=== PATIENT | male | born 1960 | race Caucasian/White ===

== ENCOUNTER 2017-07-29 11:05 | Inpatient (IN) | payer SELFPAY ==
[2017-07-29] MEDS ORDERED: Iopamidol 370 76% 50 ML VIAL FS ONE (11:17)
[2017-07-29] MEDS ORDERED: ISOVUE-370 76%-LOCM 1 ML ONE (11:17)
[2017-07-29] MEDS ORDERED: Ondansetron HCl/PF 4 MG/2 ML Vial ONE ×2 (11:46→12:56)
[2017-07-29 12:01] LABS: #Basophils 0.1 thou/uL (0.0-0.2); #Eosinphils 0.1 thou/uL (0.0-0.7); #Monocytes 0.6 thou/uL (0.11-0.59); #Neutrophils 6.7 thou/uL (1.40-6.50); %Basophils 0.8 % (0.0-1.0); %Eosinophils 1.7 % (0.0-10.0); %Lymphocytes 11.4 % (21.0-51.0); %Monocytes 7.2 % (0.0-10.0); %Neutrophils 78.8 % (42.0-75.0); Hemoglobin 16.1 g/dL (14.0-18.0); Mean Corpuscular HGB CONC 33.6 g/dL (32.0-36.0); Mean Corpuscular Hemoglobin 30.3 pg (27.0-31.0); Mean Corpuscular Volume 89.9 fl (80.0-94.0); Mean Platelet Volume 6.7 fL (7.4-10.4); Platelet Count 311 thou/uL (130-400); RBC Distribution Width 11.9 % (11.5-14.5); Red Blood Cell (RBC) Count 5.31 mill/uL (4.70-6.10); White Blood Cell (WBC) Count 8.5 thou/uL (4.8-10.8)
[2017-07-29 12:22] LABS: Troponin I Less than 0.010 ng/mL (< 0.028)
[2017-07-29 12:23] LABS: ALT (SGPT) 36 U/L (8-55); AST (SGOT) 49 U/L (5-34); Albumin 4.9 g/dL (3.5-5.0); Alkaline Phosphatase 106 U/L (40-150); Anion Gap 16 mmol/L (10-20); BUN (Urea Nitrogen) 18 mg/dL (8.4-25.7); Bilirubin, Total 1.9 mg/dL (0.2-1.2); Calc. Creatinine Clearance 0 mL/min (70-130); Calcium 10.6 mg/dL (7.8-10.44); Carbon Dioxide 28 mmol/L (22-29); Chloride 99 mmol/L (98-107); Estimated GFR-MDRD 69; Globulin 3.1 g/dL (2.4-3.5); Glucose 104 mg/dL (70-105); Lipase 17 U/L (8-78); Potassium 4.2 mmol/L (3.5-5.1); Sodium 139 mmol/L (136-145)
[2017-07-29 12:25] LABS: CKMB 13.5 ng/mL (0-6.6)
[2017-07-29 14:51] LABS: Bilirubin Moderate (Negative); Blood, Urine Trace (Negative); Clarity TURBID (Clear); Glucose, Urine (Dipstick) Negative (Negative); Leukocyte Large (Negative); Nitrite Negative (Negative); Protein, Urine (Dipstick) 30 mg/dL (Neg-Trace); Specific Gravity, Urine 1.029 (1.002-1.036)
[2017-07-29 14:53] LABS: Bacteria/HPF 1+ HPF (None Seen); Hyaline Casts/LPF 4-6 HYALINE CAST LPF (0-3 Hyaline); Pathc Cast-AUWi Flag 0.74 (0-2.49); Squamous Epithelial None Seen HPF (0-3); Yeast-AUWi Flag 18.9 (0-25.0)
[2017-07-29] MEDS ORDERED: Pantoprazole 40 MG VIAL ONE ×2 (15:22→15:23)
[2017-07-29] MEDS ORDERED: cefTRIAXone\\ROCEPHIN 2 GM in Sodium Chloride 0.9% 100 ML IVPB ONE (15:30)
--- NOTE | 2017-07-29 16:17 | CT ---
CT ABDOMEN WITH CONTRAST CT PELVIS WITH CONTRAST: DATE: 07-29-2017 TIME: 1:53 p.m. HISTORY: 57-year-old male with generalized abdominal pain, nausea, emesis, and diarrhea. COMPARISON: None. TECHNIQUE: IV injection of iodinated contrast media: 100 ml Isovue 370 Oral contrast media: PO Isovue. FINDINGS: There is only a small amount of oral contrast material, all within the nondistended gastric lumen. Th e patient was reportedly not able to drink most of the oral contrast material. There is diffuse mural edema and mural thickening of the distal esophagus. The hepatic attenuation is diffusely low, consistent with fatty liver. There is a 3 x 3 x 4 mm small calculus at the right chadwick l lower pole. There is no calculus in the left renal collecting system. There is a punctate 2 mm calc ulus in the right posterior aspect of the decompressed urinary bladder. There is no hydroureteronephr osis. The bladder lraios appear diffusely thickened and of low attenuation, suggestive of mural edema. No signs of acute colonic diverticulitis. No small bowel dilation. No abdominal aortic aneurysm. Nunez creas, adrenals, and spleen are normal. There is a tiny subcentimeter hypodensity in the lateral pare nchyma of the left kidney, too small to definitely characterize. Statistically, most likely cyst. The appendix is normal. Lung bases are grossly clear. No pneumoperitoneum or ascites. No abscess. IMPRESSION: 1. Evidence for esophagitis. 2. Right nephrolithiasis consisting of a single small 4 mm right renal calculus. 3. Tiny calculus in the right side of the urinary bladder. It is uncertain whether or not this a rece ntly passed ureteral calculus or a calculus lodged in the right ureterovesical junction, that is curr ently not causing a high grade obstruction. 4. Diffuse mural thickening of the urinary bladder with apparent edema. It is uncertain whether this represents an acute cystitis or appears this way because of non-distention. Recommend correlation wit h urinalysis. SLICK Matthew POS: [facility]
[2017-07-29] MEDS ORDERED: Ondansetron HCl/PF 4 MG/2 ML Vial IVP PRN (17:28)
[2017-07-29] MEDS ORDERED: Ondansetron ODT 4 MG TAB PO PRN (17:28)
[2017-07-29 17:30] VITALS: BMI 27.3
[2017-07-29] MEDS: Pantoprazole 80 MG, Admixture Fee 1 EACH in Sodium Chloride 0.9% 100 ML IVPB SCH ×2 (17:30→17:47)
[2017-07-29] MEDS ORDERED: Thiamine HCl 200 MG/2 ML VIAL IM SCH (17:45)
[2017-07-29] MEDS: Sodium Chloride 0.9% 1,000 ML IV SCH (18:11)
[2017-07-29 18:57] LABS: Amphetamine Detected (NotDetected); Barbiturates Screen Not Detected (NotDetected); Benzodiazepine Screen Not Detected (NotDetected); Cocaine Metabolite Screen Detected (NotDetected); Medtox Reader # READER 4; Methadone Not Detected (NotDetected); Methamphetamine Detected (NotDetected); Opiate Screen Not Detected (NotDetected); Oxycodone Screen Not Detected (NotDetected); Phencyclidine (PCP) Not Detected (NotDetected); THC/Cannabinoid Screen Not Detected (NotDetected); Tricyclic Screen Not Detected (NotDetected)
[2017-07-29 18:58] LABS: Medtox Control Line Valid? VALID (VALID)
--- NOTE | 2017-07-29 19:44 | HP-2 ---
DATE OF SERVICE: 07/29/2017 TIME: 1600 hours. CODE STATUS: FULL. PRIMARY CARE PHYSICIAN: Sohan rico. ATTENDING: Davis Katz MD RESIDENT: Davi Correa DO HISTORIAN: The patient. CHIEF COMPLAINT: Nausea, vomiting. HISTORY OF PRESENT ILLNESS: The patient woke up this morning with nausea, vomiting, and diarrhea aft er having no previous symptoms. The patient stated that the diarrhea was dark, but non-bloody. The patient stated that the diarrhea was dark in nature; however, not specifically bright red blood. Add itionally, the vomitus was dark brown. The patient stated no bright red blood was noted. Patient de nied any similar previous symptoms. Denied fever, chills, abdominal pain other than when he was vomi ting and denied chest pain as well. The patient states that he had not been recently drinking; [facility], had done methamphetamine within the previous 2 days. He also has a history of GERD; however, is taking no medication for this. PAST MEDICAL HISTORY: Bipolar disorder, schizophrenia, and GERD. PAST SURGICAL HISTORY: None. ALLERGIES: No known drug allergies. MEDICATIONS: None. FAMILY HISTORY: Unknown. SOCIAL HISTORY: Tobacco: [id number] history of smoking and use of smokeless tobacco. Alcohol: T he patient states that he is a former drinker. Drug use: The patient has a history of crack cocaine use and is a current methamphetamine user. The patient also has a history of incarceration. REVIEW OF SYSTEMS: General: The patient denies fever, chills, change in appetite, sleep, or fatigue . HEENT: Denies any vision changes, eye pain, nasal congestion, or rhinorrhea. Respiratory: Denie s cough, congestion, or shortness of breath. Cardiovascular: Denies any chest pains, palpitations, or edema. Gastrointestinal: Admits to nausea, vomiting, or diarrhea. Denies GI bleeding. Genitour inary: Denies any incontinence, dysuria, polyuria, or discharge. Skin: Denies rash or lesions. Mu sculoskeletal: Denies pain or tenderness. Neurologic: Denies weakness, numbness, syncope, or seizu re. Psychiatric: Denies any anxiety or depression. PHYSICAL EXAMINATION: VITAL SIGNS: Blood pressure 123/81, pulse 74, respiratory rate is 20, T-max 97.7, pulse ox 98% on ro om air, current weight 72.6 kg. GENERAL: The patient is alert and oriented x3, in no apparent distress, well-nourished, and appropri ately interactive. HEENT: PERRLA, EOMI. Conjunctivae are normal. NECK: Supple without lymphadenopathy. CARDIAC: Regular rate and rhythm. No murmur. RESPIRATORY: Normal effort, no retractions, clear to auscultation bilaterally. SKIN: Warm and dry without cyanosis. ABDOMEN: Soft, nontender. Bowel sounds in all 4 quadrants without mass or distention. The patient has normal rectal tone, nontender prostate that is soft; however, not boggy without nodules. MUSCULOSKELETAL: Strength is normal. Full range of motion. NEUROLOGIC: No focal neurological deficits. Cranial nerves II through XII are intact. PSYCHIATRIC: The patient interacts appropriately. LABORATORY DATA: CBC: Hemoglobin 16.1, hematocrit 47.7, white count 8.5, platelets 311, MCV is 89.9 , 78.8% neutrophils. CMP: Sodium 139, potassium 4.2, chloride 99, bicarb 28, BUN 18, creatinine 1.1 1, glucose 104, calcium 10.6, total serum protein 8.0, albumin 4.9, AST 49, ALT 36, alkaline phosphat ase 160, bilirubin 1.9, GFR 69. Lactate of 4.8. CK-MB 13.5. Troponins negative. UA; specific grav ity 1.029, blood trace, protein 30, leukocyte esterase large, nitrites negative, ketones 15, glucose negative, rbc's 4-6, wbc's too numerous to count, bacteria 1+, bilirubin moderate, urobilinogen 4. E KG is normal sinus rhythm. IMAGING: CT shows esophagitis. ASSESSMENT AND PLAN: This is a 57-year-old male with a complicated urinary tract infection and histo ry of hematemesis. 1. Hematemesis, likely secondary to Marixa-Bell tears from vomiting, currently undetermined as cau se of vomiting, possibly related to substance and/or gastritis. Due to the esophagitis on CT, we clarice l get GI consult, put on clears now, n.p.o. at midnight. FOBT is pending. 2. Complicated urinary tract infection. Urine culture. Start on Levaquin as the most likely source is chronic prostate infection. Also, have a renal ultrasound. 3. Hyperbilirubinemia. Order a fractionated bilirubin with right upper quadrant ultrasound. Order hepatitis screening and is most likely to be a conjugated hyperbilirubinemia given the urobilinogen. 4. Elevated lactate, likely secondary to volume contraction. Continue IV fluids 30 mL per hour and will trend the lactate value. 5. Elevated CK-MB. Will get total CK and turn the value. 6. History of schizophrenia. Image of more consult. 7. Substance abuse. UDS and serum tox CHAVA protocol. 8. History of incarceration and additional hepatitis panel, get HIV and RPR. 9. Hypercalcemia. The patient is currently asymptomatic. This value corrects to 9.9. This is also likely due to volume contraction. We will repeat with a CMP in the morning. 10. Deep venous thrombosis prophylaxis with SCDs. We will not do Lovenox due to the possibility of the patient's bleeding. Symptomatic medication will be provided. The history and physical as well as management were discuss ed with Dr. Katz.
[2017-07-29 19:46] LABS: Lactic Acid 1.3 mmol/L (0.5-2.2)
[2017-07-29 19:49] LABS: Acetaminophen Less than 6.0 mcg/mL (10.0-30.0); Alcohol Less than 10 mg/dL (Less than 10); Bilirubin, Direct 0.4 mg/dL (0.1-0.3); CK (CPK) 1014 U/L (30-200); Salicylate Less than 8.0 mg/dL (15.0-30.0)
[2017-07-29 20:07] LABS: Syphilis Antibody Nonreactive (Nonreactive); Syphilis Antibody Index 0.07 S/CO (<1.00 Non-Reactive)
[2017-07-29 20:10] LABS: HBCM Index 0.08 S/CO (0-0.79); HBSAg Index 0.26 S/CO (0-0.99); HIV (1/2) Antibody/Antigen Non-Reactive (NonReactive); HIV 1/2 INDEX 0.09 S/CO (<1.00); Hep A IgM AB Non-Reactive (NonReactive); Hep B Surf Ag Non-Reactive S/CO (NonReactive); Hep C IgG Ab Non-Reactive (NonReactive); Hep C Index 0.18 S/CO (0-0.79); Hepatitis B Core IGM Abs Non-Reactive (NonReactive)
[2017-07-30] MEDS: Sodium Chloride 0.9% 1,000 ML IV SCH ×3 (03:14→18:03)
[2017-07-30 05:12] LABS: #Eosinphils 0.2 thou/uL (0.0-0.7); #Lymphocytes 1.4 thou/uL (1.20-3.40); #Monocytes 0.7 thou/uL (0.11-0.59); #Neutrophils 6.7 thou/uL (1.40-6.50); %Basophils 0.1 % (0.0-1.0); %Eosinophils 1.8 % (0.0-10.0); %Lymphocytes 15.2 % (21.0-51.0); %Monocytes 7.7 % (0.0-10.0); %Neutrophils 75.2 % (42.0-75.0); Mean Corpuscular HGB CONC 34.3 g/dL (32.0-36.0); Mean Corpuscular Hemoglobin 31.1 pg (27.0-31.0); Mean Corpuscular Volume 90.8 fl (80.0-94.0); Mean Platelet Volume 7.5 fL (7.4-10.4); Platelet Count 276 thou/uL (130-400); RBC Distribution Width 12.1 % (11.5-14.5); Red Blood Cell (RBC) Count 4.51 mill/uL (4.70-6.10); White Blood Cell (WBC) Count 8.9 thou/uL (4.8-10.8)
[2017-07-30 05:47] LABS: ALT (SGPT) 27 U/L (8-55); AST (SGOT) 30 U/L (5-34); Albumin 3.6 g/dL (3.5-5.0); Alkaline Phosphatase 82 U/L (40-150); Anion Gap 12 mmol/L (10-20); BUN (Urea Nitrogen) 15 mg/dL (8.4-25.7); Bilirubin, Total 0.9 mg/dL (0.2-1.2); Calc. Creatinine Clearance 89 mL/min (70-130); Calcium 8.6 mg/dL (7.8-10.44); Carbon Dioxide 25 mmol/L (22-29); Chloride 106 mmol/L (98-107); Estimated GFR-MDRD 82; Globulin 2.2 g/dL (2.4-3.5); Glucose 75 mg/dL (70-105); Potassium 4.6 mmol/L (3.5-5.1); Protein, Total 5.8 g/dL (6.0-8.3); Sodium 138 mmol/L (136-145)
--- NOTE | 2017-07-30 07:37 | PDOC.FM ---
- Subjective Subjective: Hardik Overton states that he is feeling better than when he arrived to the ER. He vomited once this morning and still gets nauseous, dizzy when he turns his head quickly. Pt states he thinks his symptoms were caused by using methamphetamines for the first time in a while the night before last. - Objective MAR Reviewed: Yes Vital Signs & Weight: Vital Signs (12 hours) Temp Pulse Resp BP BP Pulse Ox 07/30/17 04:00 98.0 F 80 16 106/67 94 L 07/30/17 00:00 98.4 F 82 16 114/71 95 07/29/17 20:00 97.9 F 83 18 115/73 115/73 94 L I&O: 07/29/17 07/30/17 07/31/17 06:59 06:59 06:59 Intake Total 1823 Output Total 250 Balance 1573 Result Diagrams: 07/30/17 03:12 07/30/17 03:12 <Martell Clark - Last Filed: 07/30/17 10:52> - Objective Vital Signs & Weight: Vital Signs (12 hours) Temp Pulse Resp BP Pulse Ox 07/30/17 11:27 97.7 F 79 20 130/83 95 07/30/17 08:00 97.7 F 79 20 07/30/17 07:41 97.9 F 77 18 115/73 95 07/30/17 04:00 98.0 F 80 16 106/67 94 L I&O: 07/29/17 07/30/17 07/31/17 06:59 06:59 06:59 Intake Total 1823 Output Total 250 Balance 1573 Result Diagrams: 07/30/17 03:12 07/30/17 03:12 <Jerri Sanchez - Last Filed: 07/30/17 12:45> Phys Exam - Physical Examination Constitutional: NAD HEENT: PERRLA, moist MMs Neck: supple, full ROM Respiratory: no wheezing, no rales, no rhonchi, clear to auscultation bilateral Cardiovascular: RRR, no significant murmur Gastrointestinal: soft, non-tender, no distention Musculoskeletal: no edema Neurological: non-focal, moves all 4 limbs Psychiatric: normal affect, A&O x 3 <Martell Clark - Last Filed: 01/02/18 10:52> Dx/Plan (1) Hematemesis Code(s): K92.0 - HEMATEMESIS Status: Acute Plan: Likely secondary to Marixa-Bell tears from vomiting. Cause of vomiting likely 2/2 substance abuse or gastritis -GI consult this morning, currently NPO (2) Complicated UTI (urinary tract infection) Code(s): N39.0 - URINARY TRACT INFECTION, SITE NOT SPECIFIED Status: Acute Plan: Urine culture pending, start levaquin Renal U/S ordered (3) Hyperbilirubinemia Code(s): E80.6 - OTHER DISORDERS OF BILIRUBIN METABOLISM Status: Acute Plan: RUQ U/S ordered, Total bili 1.9 (4) Substance abuse Code(s): F19.10 - OTHER PSYCHOACTIVE SUBSTANCE ABUSE, UNCOMPLICATED Status: Acute Plan: UDS positive for amphetamines and cocaine ASE protocol, Hepatitis, HIV and RPR negative <Martell Clark - Last Filed: 07/30/17 10:52> Attending Addendum - Attending Addendum I personally evaluated the patient and discussed the management with Dr. Clark. I agree with the History, Examination, Assessment and Plan documented above with any addition or exceptions noted below. The patient pt had another episode of vomiting prior to our visit this morning. Phenergan has been added for nausea. GI has been consulted this morning. U/ s results reviewed. <Jerri Sanchez - Last Filed: 07/30/17 12:45>
--- NOTE | 2017-07-30 08:42 | ULT ---
GALLBLADDER ULTRASOUND: History: Right upper quadrant pain. FINDINGS: Real-time imaging of the right upper quadrant shows some sludge within the gallbladder but no definit aj stones. There is a negative ultrasound Horta's sign. Common duct is 4 mm. Liver parenchyma is of increased echogenicity. It measures 15.6 cm in length. The right kidney is normal in size. There is an echogenic focus in the lower pole region of the right kidney which could represent a nonobstructing calculus. Pancreas is obscured. IMPRESSION: 1. Fatty change of the liver. 2. Gallbladder sludge. 3. Probable nonobstructing lower pole right renal calculus. POS: [facility]
--- NOTE | 2017-07-30 08:49 | ULT ---
RENAL ULTRASOUND: History: UTI. FINDINGS: Real-time imaging of the right and left kidneys show normal sized kidneys. The right kidney measures 10 and the left kidney 11 cm in size. There is an echogenic focus in the lower pole region of the rig ht kidney suspicious for a small calculus. Left kidney is normal in size and not obstructed. Within t he bladder there is an echogenic area which appears to represent a tiny bladder calculus, probably a ureteral stone that has passed. IMPRESSION: 1. Small echogenic focus lower pole right kidney, most compatible with a nonobstructing calculus. 2. There is also a small echogenic focus within the bladder, suspicious for a small stone that is pas sed. No obstruction of either kidney. POS: [facility]
--- NOTE | 2017-07-30 09:05 | HP ---
I have reviewed the history and physical by Dr. Davi Correa. I have discussed the case with him. HISTORY: Briefly, Mr. Overton is a 57-year-old white man who presented with some nausea, vomiting and diarrhea. He denied any dysuria or burning on urination or significant suprapubic pain, but was note d to have a very grossly abnormal urinalysis with TNTC WBCs suggesting acute urinary tract infection. Statistically in men, this is most likely related to acute prostatitis. In any event, he has been admitted to workup his nausea, vomiting, diarrhea, to consider possible Marixa-Bell tear, and to tr eat his urinary tract infection. PHYSICAL EXAMINATION: GENERAL: He is awake, alert, in no distress. VITAL SIGNS: He is afebrile. Blood pressure is 115/70, pulse rate 80 and regular, respirations 16, his O2 saturation on room air is 94%. ENT: No erythema or exudate. NECK: Supple. CARDIAC: Heart rhythm regular, without gallop or murmur noted. LUNGS: Clear, without rales, rhonchi, or wheezes. ABDOMEN: Flat and soft, without guarding, rebound or rigidity. EXTREMITIES: He has no cyanosis, edema. NEUROLOGIC: No focal deficits. LABORATORY DATA: CBC: White count 8500, hemoglobin 16.1, hematocrit 47.7 with an MCV of 89.9. He h as a slight left shift. Chemistries; his sodium 139, potassium 4.2, chloride 99, bicarbonate 28, BUN 18, creatinine 1.11. His lactic acid is elevated to 4.8. It was repeated and it dropped to 1.5. H is CK is elevated at 1014. His troponin is less than 0.01. Liver function studies, total bilirubin elevated at 1.9, AST elevated at 49, ALT 36, alkaline phosphatase 106. Urine shows high protein, moderate bilirubin, large leukocyte esterase, nitrites negative, greater th an 50 to TNTC WBCs per high power field. Urine drug screen detects amphetamines, methamphetamines and cocaine metabolites. Serologies for chr onic hepatitis B and C are negative. ASSESSMENT: 1. Acute urinary tract infection, likely acute prostatitis. 2. Possible mild Marixa-Bell tear. 3. Numerous comorbidities as detailed by Dr. Correa. PLAN: Admit, begin intravenous Levaquin, obtain urine culture and proceeding based on findings.
[2017-07-30] MEDS: Multivitamin W/ Minerals 1 TAB PO SCH (09:52)
[2017-07-30] MEDS: Folic Acid 1 MG TAB PO SCH (09:52)
[2017-07-30] MEDS: Magnesium Oxide 400 MG TAB PO SCH (09:52)
[2017-07-30] MEDS ORDERED: Recombivax (HEP-B) 5 MCG/0.5 ML VIAL IM ONE (11:30)
[2017-07-30] MEDS ORDERED: Promethazine HCl 25 MG/ML VIAL IM/IV PRN (12:08)
--- NOTE | 2017-07-30 15:37 | CON ---
DATE OF CONSULTATION: 07/30/2017. REASON FOR CONSULTATION: Hematemesis. CONSULTING PHYSICIAN: Martell Clark MD. HISTORY OF PRESENT ILLNESS: The patient is a 57-year-old male with past medical history of bipolar d isorder, schizophrenia disorder, GERD, and substance abuse including recent methamphetamine use, pres enting with complaints of hematemesis. He states that he was in his usual state of health until appr oximately yesterday morning (07/29/2016) when he experienced increased nausea and repeated episodes o f vomiting. His initial vomitus was bile colored with no evidence of bleeding at that time. However , with repeated retching episodes, he began to notice increased bright red blood/coffee ground emesis as part of his vomitus. He also had associated diarrhea-like bowel movement that was dark in colora tion, but not black and it was very easy to clean. He denies any fevers, chills, shortness of breath , odynophagia, dysphagia, abdominal pain, constipation. PAST MEDICAL HISTORY: Bipolar disorder, schizophrenia, GERD, substance abuse with recent methampheta mine use. PAST SURGICAL HISTORY: None. ALLERGIES: No known drug allergies. OUTPATIENT MEDICATIONS: None. INPATIENT MEDICATIONS: Reviewed. FAMILY HISTORY: Unknown. SOCIAL HISTORY: A 20-year pack history of tobacco use. No current alcohol use. The patient has his tory of crack cocaine use and is a current methamphetamine user. REVIEW OF SYSTEMS: A 12-category review of systems was obtained from the patient with all responses negative except for the pertinent positives as listed in the HPI. PHYSICAL EXAMINATION: VITAL SIGNS: Temperature 97.7, pulse 79, blood pressure 130/83, respiratory rate 20, satting 95% on room air. GENERAL: No acute distress. He is alert and oriented x4. HEENT: Pupils are equal and round, reactive to light. Extraocular movements intact. NECK: Supple. No JVD noted. CARDIOVASCULAR: Regular rate and rhythm with no discernible murmurs, gallops or rubs. RESPIRATORY: Clear to auscultation bilaterally with no wheezes or rales. ABDOMEN: Normoactive bowel sounds, soft, nontender, nondistended. EXTREMITIES: No cyanosis, clubbing or edema. LABORATORY DATA: CBC with a white count of 8.9, hemoglobin 14, hematocrit 40.9, platelets 276. Sodi um 138, potassium 4.6, chloride 106, carbon dioxide 25, BUN 15, creatinine 0.95, glucose 75, AST 30, ALT 27, alkaline phosphatase 82, total bilirubin 0.9. IMAGING STUDIES: CT abdomen and pelvis obtained on 07/29/2017 showed diffuse mural edema, mural thic kening of the distal esophagus, hepatic attenuation consistent with fatty liver. Right upper quadran t ultrasound obtained on 07/30/2017 showing fatty change within the liver, gallbladder sludge, common bile duct of 4 mm and probable nonobstructing lower pole right renal calculus. IMPRESSION: The patient is a 57-year-old gentleman with past medical history of bipolar disorder, sc hizophrenia, gastroesophageal reflux disease, substance abuse with recent methamphetamine use, presen ting with hematemesis. Patient is presenting with acute onset of nausea and vomiting while at home yesterday on 07/29/2017 a fter using methamphetamine the day before. He had repeated episodes of retching, which at that point , he noticed darker colored emesis of almost coffee ground in nature. He also had an associated dark er colored stool, but it was not black in coloration. It was easy to clean up all consistent with me salas. At this point in time, he does have a history of this hematemesis as evidenced by the coffee g round emesis and with repeated episodes of retching prior to onset of hematemesis is concerning for M allory-Bell tear. However, other upper GI bleeding source cannot be ruled out at this time to inclu de peptic ulcer disease, AVM/Dieulafoy lesion, esophagitis, gastritis, and/or malignancy (much less l michael). RECOMMENDATIONS: 1. Continue to trend H&H and transfuse as necessary to maintain H&H of 02/15. 2. Continue PPI drip for now given probable upper gastrointestinal bleed. 3. We will plan for emergent EGD today for evaluation of possible upper gastrointestinal bleeding. 3. Continue to maintain n.p.o. status.
[2017-07-30] MEDS ORDERED: Propofol 200 MG/20 ML VIAL ONE (17:20)
--- NOTE | 2017-07-30 20:20 | OP ---
DATE OF PROCEDURE: 07/30/2017 INDICATIONS FOR PROCEDURE: Hematemesis. DESCRIPTION OF PROCEDURE: After the risks and benefits were explained to the patient including risks of bleeding, infection, perforation, reaction to anesthesia, and/or pain, informed consent was obtained. The patient was then taken to the endoscopy suite with deep sedation administered via propofol and anesthesia support. The standard gastroscope was then advanced into the mouth with intubation of the esophagus, stomach and proximal duodenum with the findings listed below. FINDINGS: Duodenum: Normal appearing mucosa was seen in both the duodenal bulb and second portion of the duodenum. There was no evidence of erosions, ulcerations , active/recent bleeding, or mass lesions. Stomach: Normal appearing mucosa was seen in the cardia, fundus, body, antrum and incisura. There was no evidence of erosions, ulcerations, active/recent bleeding, or mass lesions. No hiatal hernia was seen on gastric retroflexion. Esophagus: Normal appearing mucosa was seen in both the proximal and mid esophagus. Small erosion was seen in the distal esophagus at the GE junction and extending approximately 5-10 mm proximally from the GE junction itself. There was no evidence of active/or recent bleeding associated with erosion. Both the diaphragmatic pinch and GE junction were both well seen at approximately 37 cm past the incisors. IMPRESSION: 1. LA grade A reflux mediated esophagitis and/or possible small Marixa-Bell tear in the distal esophagus which could potentially create hematemesis with repeated retching. 2. Otherwise, normal upper endoscopy. RECOMMENDATIONS: 1. Follow up with primary inpatient team. 2. We would continue patient on pantoprazole 40 mg daily while inpatient, but could consider discontinuation upon discharge. 3. Continue to monitor for any signs of active gastrointestinal bleeding. 4. We would continue to trend H and H and transfuse as necessary to maintain an H and H of 7/21. 5. From a GI standpoint, there are no current findings on the EGD indicative of active or recent GI bleeding. From a GI standpoint, this patient can be discharged. [facility]
[2017-07-30 21:32] LABS: Chlamydia by PCR Not Detected (NotDetected); GC by PCR Not Detected (NotDetected)
[2017-07-31] MEDS: Sodium Chloride 0.9% 1,000 ML IV SCH ×2 (00:32→08:26)
--- NOTE | 2017-07-31 06:54 | PDOC.FM ---
- Subjective Subjective: Hardik Overton is doing well this morning, he requested that his diet be advanced. He is feeling well, has no complaints, no more episodes of blood vomit. Tolerated his EGD well yesterday. - Objective MAR Reviewed: Yes Vital Signs & Weight: Vital Signs (12 hours) Temp Pulse Resp BP Pulse Ox 07/30/17 23:36 98.3 F 73 16 104/68 94 L 07/30/17 20:00 97.8 F 66 16 92 L I&O: 07/29/17 07/30/17 07/31/17 06:59 06:59 06:59 Intake Total 1823 1999 Output Total 250 Balance 1573 1999 Result Diagrams: 07/30/17 03:12 07/30/17 03:12 <Martell Clark - Last Filed: 07/31/17 09:38> - Objective Vital Signs & Weight: Vital Signs (12 hours) Temp Pulse Resp BP Pulse Ox 07/31/17 08:09 98 F 65 18 112/71 94 L 07/31/17 08:00 98 F 65 18 I&O: 07/30/17 07/31/17 08/01/17 06:59 06:59 06:59 Intake Total 1823 1999 Output Total 250 Balance 1573 1999 Result Diagrams: 07/30/17 03:12 07/30/17 03:12 <Jerri Sanchez - Last Filed: 07/31/17 12:53> Phys Exam - Physical Examination Constitutional: NAD HEENT: moist MMs Neck: supple, full ROM Respiratory: no wheezing, no rales, no rhonchi, clear to auscultation bilateral Cardiovascular: RRR, no significant murmur, no rub Gastrointestinal: non-tender, no distention, positive bowel sounds Musculoskeletal: no edema Neurological: non-focal, moves all 4 limbs Psychiatric: A&O x 3 <Martell Clark - Last Filed: 07/31/17 09:38> Dx/Plan (1) Hematemesis Code(s): K92.0 - HEMATEMESIS Status: Acute Plan: Likely secondary to Marixa-Quinonez tears from vomiting. Cause of vomiting likely 2/2 substance abuse or gastritis -GI performed EGD yesterday, saw distal esophagitis, poss small wallory-quinonez tear, otherwise normal EGD -continue protonix while admitted, can be discontinued on discharge -will likely d/c today, pt has been cleared by GI (2) Complicated UTI (urinary tract infection) Code(s): N39.0 - URINARY TRACT INFECTION, SITE NOT SPECIFIED Status: Acute Plan: Currently on Levaquin Renal U/S showed 2 small 4 mm non obstructing stones -Nunez sensitive enterococcus, can be discharged on course of PO abx (3) Hyperbilirubinemia Code(s): E80.6 - OTHER DISORDERS OF BILIRUBIN METABOLISM Status: Acute Plan: Total bili 1.9 on admission RUQ U/S showed fatty liver change, gallbladder sludge -total bili yesterday was 0.9 (4) Substance abuse Code(s): F19.10 - OTHER PSYCHOACTIVE SUBSTANCE ABUSE, UNCOMPLICATED Status: Acute Plan: UDS positive for amphetamines and cocaine ASE protocol, Hepatitis, HIV and RPR negative ASE scores at 4 <Martell Clark - Last Filed: 07/31/17 09:38> Attending Addendum - Attending Addendum I personally evaluated the patient and discussed the management with Dr. Clark. I agree with the History, Examination, Assessment and Plan documented above with any addition or exceptions noted below. The patient has had no more vomiting. He tolerated diet this morning. Will discharge home on a PPI and oral antibiotic for UTI. <Jerri Sanchez - Last Filed: 07/31/17 12:53>
[2017-07-31 08:10] VITALS: BP 112/71; TEMP 98
[2017-07-31] MEDS: Magnesium Oxide 400 MG TAB PO SCH (08:25)
[2017-07-31] MEDS: Folic Acid 1 MG TAB PO SCH (08:25)
[2017-07-31] MEDS: Multivitamin W/ Minerals 1 TAB PO SCH (08:25)
--- NOTE | 2017-07-31 18:26 | DIS-2 ---
DATE OF ADMISSION: 07/29/2017 DATE OF DISCHARGE: 07/31/2017 RESIDENT: Martell Clark MD ADMITTING ATTENDING: Davis Katz M.D. DISCHARGE ATTENDING: Dr. Jerri Sanchez. CONSULTATIONS: Gastroenterology, Dr. Aranda on 07/30/2017. PROCEDURES: 1. CT of abdomen and pelvis with contrast. Impression: Evidence for esophagitis. Right nephrolith iasis consisting of single small 4 mm right renal calculus. A tiny calculus of the right side of the urinary bladder. Diffuse mural thickening of urinary bladder with apparent edema recommended to cor relate with urinalysis. 2. EGD. Impression: LA grade A reflux mediated esophagitis and/or possible small Marixa-Bell tea r in the distal esophagus which could potentially create hematemesis with repeated retching. Otherwi se, normal upper endoscopy. 3. Renal ultrasound. Impression: Small echogenic focus in the lower pole of right kidney, most com patible with nonobstructing calculus. Small echogenic focus within the bladder suspicious for small stone that has passed, no obstruction of either kidney. 4. Gallbladder ultrasound. Impression: Fatty change of the liver and gallbladder sludge. PRIMARY DIAGNOSIS: Hematemesis. SECONDARY DIAGNOSES: 1. Complicated urinary tract infection. 2. Hyperbilirubinemia. 3. Elevated lactate. 4. Elevated CK-MB. 5. History of schizophrenia. 6. Substance abuse. 7. Hypercalcemia. DISCHARGE MEDICATIONS: 1. Amoxicillin 500 mg p.o. b.i.d. for 5 days. 2. Protonix 40 mg p.o. daily. DISCONTINUED MEDICATIONS: 1. Rocephin 2 grams. 2. Zofran 4 mg p.o. q.6 hour p.r.n. 3. Levaquin 750 mg p.o. daily. 4. Thiamine 100 mg p.o. daily. 5. Folic acid 1 mg p.o. daily. 6. Hepatitis B vaccine. HISTORY OF PRESENT ILLNESS AND HOSPITAL COURSE: Hardik Overton is a 57-year-old male with past medical history of bipolar disorder, schizophrenia, and GERD who presented to the ED with a 1 day history of nausea, vomiting, diarrhea. After previously having no symptoms, the patient endorsed meth use the n ight before and was otherwise feeling well before the symptoms began. The patient stated that the di arrhea was dark in nature and also stated that the vomitus was dark brown. The patient denied any ot her symptoms. The patient states he had a history for GERD but was not taking any medications for it . He also has a [id number] history of smoking and endorsed a history of crack cocaine use and curr ent methamphetamine use. On admission, the patient had a hemoglobin of 16.1, white count of 8.5 with 79% neutrophils, a bilirubin of 1.9, lactate of 4.8. CK-MB of 13.5. Troponins were negative. UA s howed 30 protein, large leukocyte esterase, negative nitrites, 15 ketones, 4-6 red blood cells, too n umerous to count white blood cells, and 1+ bacteria. EKG showed normal sinus rhythm. CT of the abdo men showed esophagitis. The patient was admitted for hematemesis. GI was consulted for possible Mal irving-Bell tear. Urine culture was done and the patient was started on Levaquin for possible complic ated urinary tract infection. Renal ultrasound was performed which showed 2 small stones, but no obs tructing, right upper quadrant ultrasound was performed due to slightly elevated bilirubin. The elev ated lactate was likely result of volume contraction. IV fluids were given and the lactate trended d own quickly. The patient was placed on CHAVA protocol, but never developed any symptoms of withdrawal. GI saw the patient and decided to do an EGD. Results of the EGD were essentially normal, but some signs of mild esophagitis or small Marixa-Bell tear. Hand Spinner, Dr. Aranda recommended roni nding H and H, but otherwise cleared the patient from a GI standpoint. Patient's symptoms improved w hile being in the hospital. The patient was ready for discharge on 07/31/2017, especially after jaiden trejo from GI standpoint. The patient was sent home on treatment for UTI, amoxicillin and treatment for GERD, Protonix. The patient was in agreement with the plan. DISPOSITION: Stable, especially if the patient continues discharge antibiotic and PPI. DISCHARGE INSTRUCTIONS: 1. Location: Home. 2. Diet: Heart healthy. 3. Activity: As tolerated. 4. Follow up with primary care physician in 2 weeks for hospital admission follow up.
[2017-07-31] MEDS ORDERED: AMOXicillin 250 MG CAP PO SCH (21:00)
== END 2017-07-31 13:47 | disposition home or self-care (01) | DRG 378 ==
LOC: ERS 11:05 → T4-A 17:23
PROVIDERS: ADMIT Family Medicine; ATTEND Family Medicine
PROC: 0DJ08ZZ Inspection of Upper Intestinal Tract, Via Natural or Artificial Opening Endoscopic (ICD-10-PCS; principal; 2017-07-30)
DX: K92.0 Hematemesis (principal); N39.0 Urinary tract infection, site not specified; E83.52 Hypercalcemia; K22.6 Gastro-esophageal laceration-hemorrhage syndrome; F20.9 Schizophrenia, unspecified; F15.10 Other stimulant abuse, uncomplicated; F14.10 Cocaine abuse, uncomplicated; F31.9 Bipolar disorder, unspecified; F17.210 Nicotine dependence, cigarettes, uncomplicated; E80.6 Other disorders of bilirubin metabolism; N20.0 Calculus of kidney; K21.0 Gastro-esophageal reflux disease with esophagitis
CPT/HCPCS: 36415; 74177; 76705; 76770; 80053; 80074; 80306; 80307; 81003; 81015; 82247; 82274; 82553; 83605; 83690; 84484; 85025; 86780; 86850; 86900; 86901; 87040; 87077; 87086; 87186; 87389; 87491; 87591; 90746; 93005; 96361; 96365; 96368; 96375; 96376; C9113; G8978-GP-CH; G8979-GP-CH; G8980-GP-CH; G8987-GO-CI; G8988-GO-CI; G8989-GO-CI; J0696; J2405; J2550; J2704; J3411; J3475; J7050

== ENCOUNTER 2018-08-29 21:49 | Emergency (ER) | payer SELFPAY ==
[2018-08-29] MEDS ORDERED: Acetaminophen 500 MG TAB ONE (22:09)
== END 2018-08-29 22:14 | disposition home or self-care (01) ==
LOC: ERS 21:49
DX: S43.101A Unspecified dislocation of right acromioclavicular joint, initial encounter (principal); F17.210 Nicotine dependence, cigarettes, uncomplicated; X50.1XXA Overexertion from prolonged static or awkward postures, initial encounter
CPT/HCPCS: 99283